=== PATIENT | female | born 1965 | race Caucasian/White ===

== ENCOUNTER 2023-03-23 20:00 | Outpatient (OUT) | payer OTHER, SELFPAY | END 2023-03-23 20:01 | LOC: SLEEP 03-31 07:52 | DX: G47.33 Obstructive sleep apnea (adult) (pediatric) (principal); G47.11 Idiopathic hypersomnia with long sleep time | CPT/HCPCS: 95805; 95811 ==

== ENCOUNTER 2023-04-25 08:24 | Outpatient (OUT) | payer OTHER, SELFPAY ==
--- NOTE | 2023-04-25 08:26 | VEIN_ITS ---
Patient: GUCCI MORSE Exam Date: 04/25/2023 : 1965 Gender:F Ordering : DR BETH MUELLER M.D. Admission #: [id number] Family : Order #: [id number] CLICK HERE TO VIEW EXAM RADIOLOGY REPORT PROCEDURE: VC EXT VENOUS REFLUX LISHA LMTD COMPARISON: None. INDICATIONS: I83.813 Pain due to varicose veins of bilateral leg veins TECHNIQUE: Duplex imaging of the lower extremity to assess the deep and superficial venous system for the presence of deep or superficial venous incompetence and to document the location and severity of disease. The study includes evaluation of the great saphenous vein (GSV), anterior accessory saphenous vein (AASV) and small saphenous vein (SSV). Patient scanned in reverse Trendelenburg and standing. FINDINGS: RIGHT LOWER EXTREMITY: Saphenofemoral Junction Reflux: Yes 10.2mm 1.2 sec GSV: Diam (mm) Reflux/ Time (sec) Proximal Thigh 7.5 Yes 3.9 Mid Thigh 5.9 Yes 1.8 Distal Thigh 5.9 Yes 0.4 Prox Calf 5.1 Yes 0.9 Mid Calf 3.5 Yes 0.8 Saphenopopliteal Junction Reflux: 7.6mm Yes 0.5 SSV: Proximal Calf 6.6 Yes 0.6 Mid Calf 4.5 Yes 0.3 AASV: Proximal Thigh 3.9 Yes 0.3 Mid Thigh 4.5 Yes 0.4 Distal Thigh Thrombi: No acute or chronic thrombus. Compressibility: Normal. Flow: Mild deep venous reflux. Preforator: Mid medial lower leg 2.9 mm with 1.2s reflux. Tech Note: Thigh extention of SSV. Incompetent varicose vein proximal posterior calf measures 4.9 mm with 0.5s reflux. Popliteal fossa varicose vein that connects SSV and GSV measures 6.9 mm with 0.8s reflux. Mid medial thigh varicosity measures 4.0 mm with 2.8s reflux. Varicose vein medial knee measures 4.4 mm with 0.4s reflux. Medial lower leg varicosity measures 4.0 mm with 1.7s reflux. LEFT LOWER EXTREMITY: Saphenofemoral Junction Reflux: Yes 11.0 mm 1.7 sec GSV: Diam (mm) Reflux/Time (sec) Proximal Thigh 7.4 Yes 3.9 Mid Thigh 5.1 Yes 0.3 Distal Thigh 6.8 Yes 0.8 Prox Calf 4.2 Yes 3.6 Mid Calf 3.7 Yes 3.5 Saphenopopliteal Junction Relux: 7.3 mm Yes 1.9 SSV: Proximal Calf 6.9 Yes 0.9 Mid Calf 4.2 Yes 0.7 AASV: Proximal Thigh 6.6 Yes 2.0 Mid Thigh 5.2 Yes 2.5 Distal Thigh Thrombi: No acute or chronic thrombus. Compressibility: Normal. Flow: Mild deep venous reflux. Cardiovascular Tech: Distal medial lower leg 3.4 mm with 1.2s reflux. Tech Note: Incompetent varicose vein proximal medial lower leg 4.6 mm with 1.8s reflux. Distal thigh varicosity off of AASV measures 4.0 mm with 0.5s reflux. Varicosity distal medial lower leg measures 3.6 mm with 3.8s reflux. CONCLUSION: 1. Abnormally dilated and incompetent bilateral great saphenous veins and small saphenous veins. 2. Abnormally dilated and incompetent left anterior accessory saphenous vein. 3. Numerous abnormally dilated and incompetent branch saphenous varicosities. Dictated by: Erwin Mota M.D. on 04/25/2023 at 10:01 Approved by: Erwin Mota M.D. on 04/25/2023 at 10:09
--- NOTE | 2023-04-25 08:26 | VEIN_ITS ---
Patient: GUCCI MORSE Exam Date: 04/25/2023 : 1965 Gender:F Ordering : DR BETH MUELLER M.D. Admission #: [id number] Family : Order #: [id number] CLICK HERE TO VIEW EXAM RADIOLOGY REPORT PROCEDURE: VC [facility]ILITY EST [facility]ENS[facility] - OFFICE VISIT INITIAL COMPARISON: None. PROGRESS NOTES: [age] year old female who presents with a 2 year history of lower extremity heaviness, aching, itching, dull pain, swelling. The patient's leg symptoms are symmetric bilaterally. There has been a progression of symptoms over past 2 months. This increases with prolonged like dependency. The patient describes an improvement with rest, elevation, exercise, and compression stockings. The patient denies any signs and symptoms to suggest arterial ischemia. The patient describes a family history varicose veins on maternal side. The patient has drinking and smoking history of : Occasional alcohol consumption; no tobacco use. Patient has a past medical history significant for hypertension, restless leg syndrome. The patient denies a history of deep venous thrombus or pulmonary embolus. See separate history and physical for medication list. No prior treatment for varicose or spider veins. Current (past 2 years) use of compression stockings. After review of nurse notes, history and physical exam I discussed at length the pathophysiology of venous hypertension and possible treatments, therapies and strategies available. We discussed at length the importance of elevating the lower extremities above the level of the heart, increased physical activity and compression stocking use. Ultrasound venous reflux study performed today was discussed at length with the patient. The report demonstrates abnormally dilated and incompetent bilateral great saphenous veins, bilateral small saphenous veins, and left anterior accessory saphenous vein, and bilateral incompetent branch saphenous varicosities. PHYSICAL EXAM: The right leg demonstrates no significant varicosities visible on the skin surface, scattered spider veins, no ulceration, mild edema, no skin discoloration. The left leg demonstrates no significant varicosities visible on the skin surface, scattered spider veins, no ulceration, mild edema, no skin discoloration. Both thighs, legs and feet were symmetrically warm to the touch. Good posterior tibial and dorsalis pedis pulses were present bilaterally. VEIN/VC Facility EST Comprehensive IMPRESSION: 1. Bilateral lower extremity venous insufficiency 2. Bilateral lower extremity varicose veins 3. Mild lower extremity subcutaneous edema 4. No flow significant arterial disease 5. CEAP: C3, EC, , RI PLAN: 1. Continued use of compression stockings 2. Elevated legs and increased physical activity symptomatic relief 3. Endovenous laser ablation of left great saphenous vein, right great saphenous vein, left small saphenous vein, right small saphenous vein, left anterior accessory saphenous vein. 4. Microfoam chemical ablation of any remaining dilated and incompetent branch saphenous varicosities bilaterally. 5. Sclerotherapy as needed. Nurse notes, history and physical were reviewed and confirmed, see attached forms. The nurse was present throughout the physical exam and consultation Dictated by: Erwin Mota M.D. on 04/25/2023 at 10:09 Approved by: Erwin Mota M.D. on 04/25/2023 at 10:47
== END 2023-04-25 08:25 | disposition home or self-care (01) ==
PROVIDERS: PCP Radiology Diagnostic Radiology; Visit Provider Radiology Diagnostic Radiology
DX: I83.813 Varicose veins of bilateral lower extremities with pain (principal)
CPT/HCPCS: 93970; G0463

== ENCOUNTER 2023-04-25 10:33 | Outpatient (OUT) | payer OTHER, SELFPAY ==
--- NOTE | 2023-04-25 10:41 | MM_ITS ---
Patient: GUCCI MORSE Exam Date: 04/25/2023 : 1965 Gender:F Ordering : Non-Staff Physician Admission #: [id number] Family : Order #: [id number] CLICK HERE TO VIEW EXAM RADIOLOGY REPORT PROCEDURE: MM TOMOSYNTHESIS SCREENING BI COMPARISON: MG MAMM LISHA DIAG W CAD, 03/07/2020. MG MAMM LISHA DIAG W CAD, 07/30/2019. MAMMO POST BIOPSY LEFT, 01/02/2019. MAMMO LISHA SCREEN, 09/18/2018. INDICATIONS: Screening Calculator Name NCI Breast Cancer Risk Assessment Tool 5 Year Breast Cancer Risk 1.60% Lifetime Breast Cancer Risk 10.70% Personal Breast Cancer No Personal Ovarian Cancer No Treatments None Family Cancers None LOCATION: [facility] BREAST COMPOSITION: Extremely dense, which lowers the sensitivity of mammography. FINDINGS: DIAGNOSTIC CATEGORY 2--BENIGN FINDING: RIGHT BREAST: No significant suspicious finding. Scattered benign-appearing calcifications are present. No significant change has occurred. LEFT BREAST: No significant suspicious finding. Scattered benign-appearing calcifications are present. No significant change has occurred. RECOMMENDATIONS: ROUTINE MAMMOGRAM AND CLINICAL EVALUATION IN 12 MONTHS. PLEASE NOTE: A NORMAL MAMMOGRAM DOES NOT EXCLUDE THE POSSIBILITY OF BREAST CANCER. A CLINICALLY SUSPICIOUS PALPABLE LUMP SHOULD BE BIOPSIED. Dictated by: Erwin Mota M.D. on 04/26/2023 at 13:28 Approved by: Erwin Mota M.D. on 04/26/2023 at 13:42
== END 2023-04-25 10:34 | disposition home or self-care (01) ==
LOC: MAMMO 10:33
PROVIDERS: PCP Radiology Diagnostic Radiology
DX: Z12.31 Encounter for screening mammogram for malignant neoplasm of breast (principal); I83.813 Varicose veins of bilateral lower extremities with pain
CPT/HCPCS: 77063; 77067; 93970; G0463